=== PATIENT | female | born 1980 | race Caucasian/White ===

== ENCOUNTER → 2020-11-05 12:50 | Outpatient (CLI) | payer OTHER, SELFPAY ==
--- NOTE | ~2020-11-05 | MM_ITS ---
EXAMINATION: MM screening [facility] BI w antoinette HISTORY: Screening TECHNIQUE: Craniocaudal and mediolateral oblique 3-D tomosynthesis images were obtained and synthetic 2-D images were generated. CAD analysis was submitted and interpreted. COMPARISON: No prior mammogram is available for comparison at this institution. BREAST PARENCHYMAL COMPOSITION: The breasts are heterogeneously dense, which may obscure small masses . FINDINGS: There is focal asymmetry in the upper outer quadrant of the left breast posteriorly. There is no mammographic evidence for malignancy in the right breast. IMPRESSION: 1. Left breast asymmetry, upper outer quadrant. 2. Additional mammographic views and possible breast ultrasound are recommended. BI-RADS Category 0: Incomplete: Needs additional imaging evaluation. Reviewed, dictated and finalized at location A. IMPRESSION: 1. Left breast asymmetry, upper outer quadrant. 2. Additional mammographic views and possible breast ultrasound are recommended . BI-RADS Category 0: Incomplete: Needs additional imaging evaluation.
== END ==
PROVIDERS: Visit Provider Nurse Practitioner
DX: Z12.31 Encounter for screening mammogram for malignant neoplasm of breast (principal); R92.8 Other abnormal and inconclusive findings on diagnostic imaging of breast
CPT/HCPCS: 77063; 77067

== ENCOUNTER → 2020-12-10 08:53 | Outpatient (CLI) | payer OTHER, SELFPAY ==
--- NOTE | ~2020-12-10 | MMUS_ITS ---
EXAMINATION: MM diagnostic scotty LT w antoinette, US breast LT limited HISTORY: Focal asymmetry of the left breast on screening mammogram TECHNIQUE: Additional 3-D tomosynthesis images of the left breast were performed and synthetic 2-D im ages were generated. CAD analysis was submitted and interpreted. High resolution limited left breast ultrasound was performed. COMPARISON: 11/05/2020 FINDINGS: MAMMOGRAPHIC FINDINGS: There is an approximately 1.4 cm round, obscured mass in the far posterior third of breast at the 2:0 0 location 9 cm from the nipple. The mass appears to contain fatty and fibroglandular density. No sabas picious calcification or architectural distortion are identified. ULTRASOUND: There is an approximately 2.1 x 0.6 cm oval, circumscribed, parallel, complex cystic and solid mass a t the 2:00 location 8 cm from the nipple which demonstrates no posterior features or internal vascula rity. A 5 mm lymph node is noted at the 3:00 location 7 cm from the nipple. IMPRESSION: 1. Left breast mass with imaging features suggestive of a fibroadenolipoma. 2. Recommend 6 month follow-up left diagnostic mammogram and ultrasound. BI-RADS category 3, probably benign findings. Reviewed, dictated and finalized at location A. IMPRESSION: 1. Left breast mass with imaging features suggestive of a fibroadenolipoma. 2. Recommend 6 month follow-up left diagnostic mammogram and ultrasound. BI-RADS category 3, probably benign findings.
== END ==
PROVIDERS: Visit Provider Nurse Practitioner
DX: R92.8 Other abnormal and inconclusive findings on diagnostic imaging of breast (principal)
CPT/HCPCS: 76642; 77061; 77065; G0279

== ENCOUNTER → 2021-08-28 09:28 | Outpatient (CLI) | payer OTHER, SELFPAY ==
--- NOTE | ~2021-08-28 | MMUS_ITS ---
EXAMINATION: MM diagnostic scotty LT w antoinette, US breast LT limited HISTORY: Follow-up left breast mass TECHNIQUE: Additional 3-D tomosynthesis images of the left breast were performed and synthetic 2-D im ages were generated. CAD analysis was submitted and interpreted. High resolution Limited left breast ultrasound was performed. COMPARISON: 08/28/2021 BREAST PARENCHYMAL COMPOSITION: The breasts are heterogenously dense, which may obscure small masses FINDINGS: MAMMOGRAPHIC FINDINGS: The left breast is stable. Focal asymmetry in the upper outer quadrant of the left breast is unchange d from prior examination. No new masses, calcifications or architectural distortion to suggest malign verona. The right breast is unremarkable without evidence for malignancy. ULTRASOUND: Limited right breast ultrasound: At 2:00, 8 cm from the nipple, there is a complex mass measuring 1.9 x 0.5 x 1.3 cm compared with 2.1 x 1.6 x 0.7 cm on prior examination, likely benign hamartoma. 3:00, 7 cm from the nipple, there is an oval hypoechoic mass measuring 5 x 5 x 3 mm which is oval, circums cribed, parallel orientation with no internal vascularity and no posterior features, likely benign. IMPRESSION: 1. Probable benign left breast masses. 2. Recommend 6 month follow-up Limited left breast ultrasound BI-RADS category 3, probably benign findings. Reviewed, dictated and finalized at location A. IMPRESSION: 1. Probable benign left breast masses. 2. Recommend 6 month follow-up Limited left breast ultrasound BI-RADS category 3, probably benign findings.
== END ==
PROVIDERS: PCP Family Medicine; Visit Provider Nurse Practitioner
DX: R92.8 Other abnormal and inconclusive findings on diagnostic imaging of breast (principal)
CPT/HCPCS: 76642; 77061; 77065; G0279

== ENCOUNTER → 2022-03-06 09:29 | Outpatient (CLI) | payer OTHER, SELFPAY ==
--- NOTE | ~2022-03-06 | MMUS_ITS ---
EXAMINATION: MM diagnostic scotty BI w antoinette, US breast BI complete HISTORY: Follow-up breast masses. TECHNIQUE: Additional 3-D tomosynthesis images of the breasts were performed and synthetic 2-D images were generated. CAD analysis was submitted and interpreted. High resolution bilateral complete breas t ultrasound was performed. COMPARISON: Comparison to multiple prior studies sequentially, with oldest reviewed study dated 11/05. BREAST PARENCHYMAL COMPOSITION: The breasts are heterogeneously dense, which may obscure small masses FINDINGS: MAMMOGRAPHIC FINDINGS: There are no suspicious masses, calcifications or architectural distortion in either breast to sugges t malignancy. ULTRASOUND: Complete bilateral US of all 4 quadrants of the breasts and retroareolar region was reviewed. Right breast: At 1:00, 2 cm from the nipple, there is a minimally complicated 3 mm cyst. At 3:00, 6 c m from the nipple there is an oval hypoechoic 5 mm mass with no significant posterior features, most likely benign. Left breast: At 2:00, 8 cm from the nipple, there is a stable heterogeneous partially cystic parallel oriented mass measuring 1.9 x 1.7 x 0.7 cm compared with 1.9 x 1.6 x 0.7 cm on 12/10/2020. At 3:00, 7 cm from the nipple, there is a 1.3 x 0.7 x 0.4 cm intramammary lymph node. IMPRESSION: 1. Likely benign bilateral breast masses. 2. Recommend 6 month follow-up limited bilateral breast ultrasound BI-RADS category 3, probably benign findings. Reviewed, dictated and finalized at location A. GER RESIDENTIAL IMPRESSION: 1. Likely benign bilateral breast masses. 2. Recommend 6 month follow-up limited bilateral breast ultrasound BI-RADS category 3, probably benign findings.
== END ==
PROVIDERS: PCP Family Medicine; Visit Provider Obstetrics & Gynecology Gynecology
DX: R92.8 Other abnormal and inconclusive findings on diagnostic imaging of breast (principal)
CPT/HCPCS: 76641; 77062; 77066; G0279

== ENCOUNTER 2022-09-01 09:32 | Outpatient (CLI) | payer OTHER, SELFPAY ==
--- NOTE | ~2022-09-01 | US_ITS ---
EXAMINATION: US breast BI limited HISTORY: Six-month follow-up for probably benign bilateral breast masses TECHNIQUE: Limited bilateral breast ultrasound was performed. COMPARISON: 03/06/2022, 08/28/2021, 12/10/2020 FINDINGS: There is a stable 4 mm x 3 mm oval, circumscribed, parallel, hypoechoic mass with no pipeline executive ior features or internal vascularity at the 1:00 location, 2 cm from the nipple in the right breast. There is a stable 4 mm round, hypoechoic mass at the 3:00 location, 6 cm from the nipple in the right breast. A 1.7 x 0.5 cm oval, circumscribed, parallel, complex cystic and solid mass of the left jenna st at the 2:00 location, 8 cm from the nipple is stable since the 2020 comparison. An abutting 7 mm h ypoechoic mass is stable in size since the 2020 comparison. An intramammary lymph node is noted at th e 3:00 location 7 cm from the nipple in the left breast. IMPRESSION: Stable, probably benign breast masses. Follow-up targeted left breast ultrasound six months is recomm ended. BI-RADS category 3, probably benign findings. Reviewed, dictated and finalized at location A. IMPRESSION: Stable, probably benign breast masses. Follow-up targeted left breast ultrasoun d six months is recommended. BI-RADS category 3, probably benign findings.
== END 2022-09-01 09:33 ==
LOC: MICIMG 09:33
PROVIDERS: PCP Family Medicine; Visit Provider Nurse Practitioner
DX: N60.01 Solitary cyst of right breast (principal); N60.02 Solitary cyst of left breast; R92.8 Other abnormal and inconclusive findings on diagnostic imaging of breast
CPT/HCPCS: 76642

== ENCOUNTER → 2023-03-06 14:04 | Outpatient (CLI) | payer OTHER, SELFPAY ==
--- NOTE | ~2023-03-06 | MM_ITS ---
EXAMINATION: MM screening [facility] BI w antoinette HISTORY: Screening mammogram TECHNIQUE: Craniocaudal and mediolateral oblique 3-D tomosynthesis images were obtained and synthetic 2-D images were generated. CAD analysis was submitted and interpreted. COMPARISON: 03/06/2022, 08/28/2021, 12/10/2020, 11/05/2020 BREAST PARENCHYMAL COMPOSITION: The breasts are heterogeneously dense, which may obscure small masses . FINDINGS: An asymmetry in the posterior third of the left breast on the mediolateral oblique view in line with the nipple axis is stable. No suspicious mass, calcification, or architectural distortion a re identified in either breast to suggest malignancy. There has been no suspicious interval change. IMPRESSION: 1. No mammographic evidence of malignancy. 2. Recommend routine screening mammography in one year. BI-RADS Category 2: Benign finding(s). Reviewed, dictated and finalized at location A. RPRETER TRANSLATOR
--- NOTE | ~2023-03-06 | US_ITS ---
EXAMINATION: US breast LT limited HISTORY: Six-month follow-up for probably benign sonographically detected left breast masses TECHNIQUE: Limited left breast ultrasound was performed. COMPARISON: 09/01/2022, 03/06/2022, 12/10/2020 FINDINGS: A 1.6 x 0.6 cm oval, circumscribed, parallel, complex cystic and solid mass of the left homero ast at the 2:00 location, 8 cm from the nipple demonstrates interval decrease in size. A 6 mm x 3 mm mass at 2:00 location, 8 cm from the nipple also demonstrates interval decrease in size. Additional p reviously described masses are not identified. IMPRESSION: Benign sonographically detected left breast masses. Routine screening mammography is recommended. BI-RADS Category 2: Benign finding(s). Reviewed, dictated and finalized at location A. ISTIC EXPERT IMPRESSION: Benign sonographically detected left breast masses. Routine screening mammograp hy is recommended. BI-RADS Category 2: Benign finding(s).
== END ==
PROVIDERS: PCP Obstetrics & Gynecology Gynecology; Visit Provider Obstetrics & Gynecology Gynecology
DX: Z12.31 Encounter for screening mammogram for malignant neoplasm of breast (principal); N63.20 Unspecified lump in the left breast, unspecified quadrant
CPT/HCPCS: 76642; 77063; 77067

== ENCOUNTER → 2023-03-27 14:31 | Outpatient (CLI) | payer OTHER, SELFPAY ==
--- NOTE | ~2023-03-27 | XR_ITS ---
EXAMINATION: XR_CERV2-3V_CR DATE: 03/27/2023 14:50 INDICATION: Neck pain. TECHNIQUE: 3 views of cervical spine were obtained. COMPARISON: None. FINDINGS: Bone alignment is normal. Vertebral body heights are normal. There is mildly decreased disc height at C4-C5 and C5-6. At C5-C6 and C6-C7, there is moderate bilateral uncovertebral joint osteoa rthritis. The facet joints are unremarkable. There is mild central canal stenosis at C5-C6 and C6-C7. No prevertebral soft tissue swelling. IMPRESSION: 1. Mild cervical spondylosis. Reviewed, dictated and finalized at location E. ELING INVENTORY ASSOCIATE
--- NOTE | ~2023-03-27 | XR_ITS ---
EXAMINATION: XR lumbar spine 2-3V DATE: 03/27/2023 14:50 INDICATION: Dorsalgia, unspecified. TECHNIQUE: 3 views of lumbar spine were obtained. COMPARISON: None. FINDINGS: There is 5 degrees levocurvature of thoracolumbar spine. There is mild chronic anterior wed ging of multiple lower thoracic vertebral bodies. Vertebral body heights and intervertebral disc heig hts are normal in lumbar spine. There is multilevel mild lumbar facet joint osteoarthritis. There are endplate osteophytes at multiple levels. There is an intrauterine device in expected position. IMPRESSION: 1. Mild lumbar spondylosis. Reviewed, dictated and finalized at location E. BING MANAGER IMPRESSION: 1. Mild lumbar spondylosis.
== END ==
PROVIDERS: PCP Family Medicine; Visit Provider Emergency Medicine
DX: M47.892 Other spondylosis, cervical region (principal); M47.896 Other spondylosis, lumbar region
CPT/HCPCS: 72040; 72100

== ENCOUNTER 2023-05-22 10:00 | Outpatient (RCR) | payer OTHER, SELFPAY ==
--- NOTE | 2023-04-24 11:57 | OPREHPOC ---
Outpatient Therapy Plan of Care This is a Multidisciplinary Plan of Care that may contain components documented by all disciplines (PT, OT, and ST.) PT Problem 1 PT Problem #1 Knowledge Deficit PT Goal 1 Goal Pt to be IND with issued HEP Target Visit 8 PT Problem 2 PT Problem #2 Pain PT Goal 1 Goal Pt to report back or neck pain no greater than 3/ 10 in the last week. Target Visit 8 PT Goal 2 Goal Pt to report 75% improvement in overall symptoms 8 PT Problem 3 PT Problem #3 Impaired Functional Mobil PT Goal 1 Goal Pt to demonstrate functional lift and carry with 30lb Target Visit 8 PT Goal 1 Goal Pt to report being able to stand for 2 hours before needing to sit. Target Visit 8
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
--- NOTE | 2023-05-15 11:58 | PCPTNOTE ---
Patient canceled this date with no reason given.
--- NOTE | 2023-05-22 10:57 | PTOPDC ---
Assessment and note entered by Samantha Orta, PT, DPT Evaluation Information Assessment Status Discharge Diagnosis neck and low back pain Onset chronic Subjective Information Pt states she has hardly had any neck pain in the last week, only once when waking up. She states her back is doing good today, and feels like it is progressing well. She states she still has pain when at work. Reported Pain Level Pain Score 2,0: Self Report Assessment PT Clinical Summary Sandy presents to therapy today for her progress report following 8 visits of skilled therapy to treat her diagnosis of chronic neck and low back pain. Today she demonstrates improved cervical ROM with improved pain reports. She continues to report low back pain with prolonged standing and with work, she continues to require moderate amounts of cueing for posture throughout exercise. Pt educated on adjusting standing posture while at work. Pts HEP progressed this date and she plans to continue working towards her therapy goals IND. She will be discharged at this time.
== END 2023-05-22 13:56 | disposition home or self-care (01) ==
LOC: ANHGOSHPT 10:00
PROVIDERS: PCP Family Medicine; Visit Provider Emergency Medicine
DX: S16.1XXD Strain of muscle, fascia and tendon at neck level, subsequent encounter (principal); S39.012D Strain of muscle, fascia and tendon of lower back, subsequent encounter
CPT/HCPCS: 97014; 97110; 97161; 97530; G0283

== ENCOUNTER 2024-03-23 13:22 | Outpatient (CLI) | payer OTHER, SELFPAY ==
--- NOTE | ~2024-03-23 | MM_ITS ---
EXAMINATION: MM screening [place]ty BI w antoinette HISTORY: Screening TECHNIQUE: Craniocaudal and mediolateral oblique 3-D tomosynthesis images were obtained and synthetic 2-D images were generated. CAD analysis was submitted and interpreted. COMPARISON: Comparison to multiple prior studies sequentially, with oldest reviewed study dated 11/05. BREAST PARENCHYMAL COMPOSITION: Dense: The breasts are heterogeneously dense, which may obscure small masses FINDINGS: There is no evidence of suspicious mass, calcification, or architectural distortion to sugg est malignancy in either breast. There has been no suspicious interval change. IMPRESSION: 1. No mammographic evidence of malignancy. 2. Recommend routine screening mammography in one year. BI-RADS Category 1: Negative Reviewed, dictated and finalized at location B. ILIZING MACHINE OPERATOR
== END 2024-03-23 13:23 | disposition home or self-care (01) ==
LOC: MICIMG 13:23
PROVIDERS: PCP Family Medicine; Visit Provider Nurse Practitioner
DX: Z12.31 Encounter for screening mammogram for malignant neoplasm of breast (principal)
CPT/HCPCS: 77063; 77067

== ENCOUNTER 2025-01-16 14:24 | Outpatient (CLI) | payer OTHER, SELFPAY ==
--- NOTE | ~2025-01-16 | US_ITS ---
EXAMINATION: US transvaginal, 01/16/2025 14:27 CDT HISTORY: Pelvic pain, IUD check Comparison: None Technique: Vital-scale and color Doppler images were attempted of the lower saphenofemoral junction, common femoral vein,superficial femoral vein, proximal deep femoral vein, proximal deep femoral vein, popliteal vein and posterior tibial veins. Findings: Deep Venous System:Normal flow, augmentation and compressibility. No echogenic thrombus identified. The contralateral saphenofemoral junction appears unremarkable. Superficial Venous SystemNo superficial thrombophlebitis. Soft tissues: Soft tissues are unremarkable. Impression: Negative for DVT. EXAMINATION: US transvaginal, 01/16/2025 14:27 CDT HISTORY: Pelvic pain, IUD check Comparison: None Technique: Vital-scale and color Doppler images were obtained. Findings: Uterus: Uterus anteverted 7.7 x 3.8 x 4.1 cm, IUD in appropriate location. . Endometrium 4 mm. Right Ovary:Right ovary 1.7 x 1.1 x 1.7 cm, no adnexal mass, normal flow. Left Ovary: Left ovary 1.5 x 0.8 x 0.9 cm, no adnexal mass, normal flow Free Fluid: None Impression: IUD in appropriate location Reviewed, dictated and finalized at location P. Impression: Negative for DVT. EXAMINATION: US transvaginal, 01/16/2025 14:27 CDT HISTORY: Pelvic pain, IUD check Comparison: None Technique: Vital-scale and color Doppler images were obtained. Findings: Uterus: Uterus anteverted 7.7 x 3.8 x 4.1 cm, IUD in appropriate location. . Endometrium 4 mm. Right Ovary:Right ovary 1.7 x 1.1 x 1.7 cm, no adnexal mass, normal flow. Left Ovary: Left ovary 1.5 x 0.8 x 0.9 cm, no adnexal mass, normal flow Free Fluid: None Impression: IUD in appropriate location
== END 2025-01-16 14:25 | disposition home or self-care (01) ==
LOC: MICIMG 14:25
PROVIDERS: PCP Family Medicine
DX: R10.2 Pelvic and perineal pain (principal); Z30.431 Encounter for routine checking of intrauterine contraceptive device
CPT/HCPCS: 76830

== ENCOUNTER 2025-03-21 12:28 | Outpatient (CLI) | payer OTHER, SELFPAY ==
--- NOTE | 2025-03-21 | ECG_ITS ---
Test Date: 2025-03-21 13:00:45 Measurements Intervals [place] Rate: 57 P: 78 FL: 238 QRS: 79 QRSD: 131 T: 27 QT: 480 QTc: 470 Interpretive Statements SINUS BRADYCARDIA WITH FIRST DEGREE AV BLOCK WITH OCCASIONAL SUPRAVENTRICULAR PREMATURE COMPLEXES INTRAVENTRICULAR CONDUCTION DELAY [130+ ms QRS DURATION] CANNOT R/O SEPTAL INFARCT, AGE INDETERMINATE BORDERLINE ST-T WAVE ABNORMALITY- ANTEROLAT/INF LEADS ABNORMAL ECG No previous ECG available for comparison Electronically Signed On 03-21-2025 13:05:13 QUALITY CONTROL INDUSTRIAL ENGINEER by Frankie Harris D.O.
--- OUTSIDE RECORDS SUMMARY | 2025-03-21 13:07 | XMS_ITS | Clinical Summary ---
Author Organization [employer] [facility] [address] Address [address] [facility] [facility] [address] [place] [address] Phone Care Team Providers Care Machine Shop Specialist Name Role Phone Raven Abrams MD Primary Care Provider [phone] Social History Tobacco Use Types Packs/Day Years Used Date Smoking Tobacco: Never Assessed Comments Unknown Sex and Gender Information Value Date Recorded Sex Assigned at Not on file Legal Sex Female 3:32 PM CDT Gender Identity Not on file Sexual Orientation Not on file Plan of Treatment Health Maintenance Due Date Last Done Comments DTAP/TDAP/TD VACCINES (1 - Tdap) 10/22/1999 HEPATITIS B VACCINES (1 of 3 - 19+ 3-dose series) 07/1999 HPV/Cotest (21-29) 2001 HPV VACCINES (1 - 3-dose SCDM series) 10/22/2007 CERVICAL CANCER SCREENING 2010 HPV/Cotest (30-65) 2010 PAP SMEAR 2010 BREAST CANCER SCREENING 2020 INFLUENZA VACCINE (#1) 2024 Insurance [employer] BLUE ACCESS/TRUE BLUE PPO Care Teams Machine Shop Specialist Relationship Specialty Start Date End Date Raven Abrams MD PCP - General Family Practice 07/05/13
--- OUTSIDE RECORDS SUMMARY | 2025-03-21 13:07 | XMS_ITS | Encounter Summary ---
Author Organization [facility] Address [address] [place] [address] Phone Care Team Providers Care Revenue Officer Name Role Phone Raven Abrams MD Primary Care Provider + Dayna Maxwell RN Unavailable Unavaila Jaylene Rincon RN Unavailable Unavailable Nirmala Varela Unavailable Unavailable Encounter Details Date Type Department Care Team (Late st Contact Info) Description 01/27/2025 Results Follow-Up [facility] Medicine Cardiology [address] [facility] Advanced Medicine 8th [place] [address] [place] [address] Coleen Lemus MD [address] [facility] [address] [place] [address] Basic metabolic panel, eGFR, ECG 12 lead Social History Tobacco Use Types Packs/Day Years Used Date Smoking Tobacco: Never Smokeless Tobacco: Never Alcohol Use Standard Drinks/Week Comments Yes 0 (1 standard drink = 0.6 oz pur e alcohol) Personal Safety Answer Date Recorded Have you ever been in or are you currently in a harmful physical or emotional relationship or is someone making you feel afraid or unsafe? 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
--- OUTSIDE RECORDS SUMMARY | 2025-03-21 13:07 | XMS_ITS | Clinical Summary ---
Author Organization [facility] Medical [facility] 1 Address [address] [place] [address] Care Team Providers Care Call Center Rn Name Role Phone Raven Abrams MD Primary Care Provider + Dayna Maxwell RN Unavailable Unavaila Jaylene Rincon RN Unavailable Unavailable Nirmala Varela Unavailable Unavailable Allergies Active Allergy Reactions Criticality Noted Date Comments Prednisone Other (See comments) Low 06/10/2016 Throat swelling and pain in neck Medications ergocalciferol (VITAMIN D) 50,000 unit capsule Take 1 capsule (50,000 Units total) by mouth once a week 10/13/2020 Active empagliflozin (JARDIANCE) 10 mg tablet Take 1 tablet (10 mg total) by mouth daily 30 tablet 11 07/08/2023 Active cetirizine (ZyrTEC) 10 mg chewable tabletIndicatio ns:Seasonal Allergic Rhinitis Take 1 tablet (10 mg total) by mouth daily Active Xarelto 20 mg tablet TAKE 1 TABLET BY MOUTH EVERY DAY WITH DINNER 90 tablet 2 08/02/2024 Active sacubitriL-vals hernandez (Entresto) 24-26 mg tablet Take 1 tablet by mouth 2 (two) times a day 180 tablet 3 12/13/2024 Active metoprolol XL (TOPROL-XL) 25 mg extended release tablet TAKE 1 TABLET (25 MG TOTAL) BY MOUTH DAILY. 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 Do not recommend surgical intervention based upon these factors and her tolerable symptoms. Continue compression therapy follow-up with me on a p.r.n. basis. Assessment & Plan (10/19/2020 11:22 AM CDT): Impression: Patient has varicosities noted to left lower extremity with a small mass to left posterior knee. Patient complains of pain final left lower extremity. Plan: Recommend continue wearing compression stocking 20-30mm HG. Patient requesting pantyhose style compressions. Recommend venous reflux study and follow up in 2 weeks to discuss results. Rash and nonspecific skin eruption 10/19/2020 Assessment & Plan (10/19/2020 12:52 PM CDT): Impression: Erythema, raised papules noted to bilateral tibial area and left inner thigh. Patient complains of itchiness to these areas. No open areas noted. Plan: Patient has an appointment with Dermatology the end of October. She is currently on medication for rash by primary physician. Advised patient to keep dermatology appointment and to continue medication. Patient understood. 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 Assessment & Plan (06/24/2022 12:02 PM NUTRITION SERVICES WORKER): HFrecEF. Stable in clinic today. NYHA class I findings. ECHO pending from today. Continue BB and ARB. 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 Saw Dr. Anderson in January who offered her a repeat cardiac telemetry, she declined this again, not very bothersome. Tikosyn and eliquis. Assessment & Plan (07/02/2023 2:52 PM CDT): Reoccurrence of Afib/Flutter appreciate Dr. Lemus's recs. Pending admission to [facility] later this month for Tikosyn load. Continue Metoprolol and Xarelto. Assessment & Plan (06/24/2022 12:03 PM NUTRITION SERVICES WORKER): Denies reoccurrence, continue xarelto Metoprolol decreased to 25 mg for fatigue. 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 Echo pending from today. With recurrence of atrial arrhthymias see Aflutter. Continue metoprolol xl 25 mg and Entresto 24/26 mg BID, will clarify with EP if SGLT2 is safe with Tikosyn (will start Farxiga [address] Riley in 6 months with an ECHO same day to establish care. 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 Doing well in clinic from a cardiovascular standpoint, she continues to endorse fatigue this is chronic and ongoing. We decreased her metoprolol to 25 mg and encouraged her to take it at night along with stressing the importance of compliance with her CPAP. ECHO pending from today, further rec upon review. No ASA and she does not require SBE. 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 May 2023 with LVEF and RVEF measured at 30%. NYHA class I findings and euvolemic on exam. Medical management is good, will add low dose aldactone 12.5mg daily. Continue entresto, jardiance and metoprolol. I asked her to see our [facility] provider in 6 months with an ECHO the same day Dr. Cannon and then Dr. Riley in 6 months after that. 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 May 2023 with LVEF and RVEF measured at 30%. NYHA class I findings and euvolemic on exam. Medical management is good, will add low dose aldactone 12.5mg daily. Continue entresto, jardiance and metoprolol. [facility] with an ECHO the same day Dr. Cannon and then Dr. Riley in 6 months after that. Resolved Problems Problem Noted Date Diagnosed Date Resolved Date Atrial fibrillation 07/10/2023 08/28/19 24 Encounters Date Type Department Care Team Description 03/21/2025 Telephone [facility] [address] [place] [address] [place] [address] [place] [address] Bonifacio Riley MD PhD 02/15/2025 10:30 AM CDT Office Visit [facility] [address] [place] [address] [place] [address] [place] [address] Ashley Smith NP Congenital anomaly of heart (Primary Dx); Atrial flutter, unspecified type (HCC) 01/27/2025 2:55 PM CDT Lab [facility] [address] [place] [phone] Atrial flutter, unspecified type (HCC) 01/27/2025 11:00 AM CDT Office Visit [facility] [address] [place] [address] [place] [address] Coleen Lemus MD Atrial flutter, unspecified type (HCC) (Primary Dx); High risk medication use 01/27/2025 Results Follow-Up [facility] [address] [place] [address] [place] [address] Coleen Lemus MD Basic metabolic panel, eGFR, ECG 12 lead from Last 3 Months Immunizations Immunization Administration Dates Next Due Influenza, Quadrivalent, Spl it, Preservative Free, Intramuscular 02/24/2020 Influenza, Unspecified 01/19/2023 Pfizer SARS-CoV-2 Monovalent Vaccination (12+ Yrs) PURPLE 07/30/2020,07/06/2020 Surgical History Surgery Date Site/Laterality Comments SECTION 04/20/2013 - 04/19/2014 ASD REPAIR 04/20/1983 - 04/19/1984 PULMONARY VALVE SURGERY 1980 RVOT patch reconstruction via ventriculotomy, RV muscle bundle division, 4 mm Goretext central shunt Medical History Medical History Date Comments Acquired scoliosis Scoliosis Atrial flutter (HCC) Pulmonary atresia with intact ventricular septum Pulmonary insufficiency Atrial septal defect Obstruction of femoral vein Peripartum cardiomyopathy Family History Medical History Relation Name Comments Stroke Maternal Grandfather Family history of cerebrovascular accident (CVA) - (Added by TW Conv) Heart murmur Mother Family history of heart murmur - (Added by TW Conv) Cardiomyopathy Mother's Brother Family hi story of cardiomyopathy - (Added by TW Conv) Heart murmur Sister Family history of heart murmur - (Added by TW Conv) Relation Name Status Comments Maternal Grandfather Mother Mother's Brother Sister Social History Tobacco Use Types Packs/Day Years Used Date Smoking Tobacco: Never Smokeless Tobacco: Never Tobacco Cessation:Counseling Given: Not Answered Alcohol Use Standard Drinks/Week Comments Yes 0 [...] on file Legal Sex Female 1:59 AM NUTRITION SERVICES WORKER Gender Identity Not on file Sexual Orientation Not on file Last Filed Vital Signs Vital Sign Reading Time Taken Comments Blood Pressure 119/80 02/15/2025 10:45 AM CDT Pulse 66 02/15/2025 10:45 AM CDT Temperature 37.1 C (98.8 F) 07/13/2023 12:03 PM CDT Respiratory Rate 18 07/13/2023 12:03 PM CDT Oxygen Saturation 99% 02/15/2025 10:45 AM CDT Inhaled Oxygen Concentration - - Weight 65.3 kg (144 lb) 02/15/2025 10:45 AM CDT Height 165.1 cm (5' 5) 02/15/2025 10:45 AM CDT Body Mass Index 23.96 02/15/2025 10:45 AM CDT Plan of Treatment Health Maintenance Due Date Last Done Comments Breast Cancer Screening-Mammogram 1980 Cervical Cancer Screening 1980 Depression Screening 1980 Hepatitis C Screening 1980 Varicella Vaccines (1 of 2 - 13+ 2-dose series) 1993 Regular Well Visit/Exam 18-64 1998 HPV Vaccines (1 - 3-dose SCD M series) 10/22/2007 Pneumococcal vaccine <65 (2 of 2 - PCV) 12/07/2014 12/07/2013 Covid-19 Vaccine (3 - 2024-2 6 season) 2024 07/30/2020, 07/06/2020 Influenza Vaccine (#1) 2024 , 01/19/2023, 02/28/2020, Additional history exists DTaP/Tdap/Td Vaccine (8 - Td or Tdap) 04/06/2027 04/06/2017, 10/18/2013, 09/25/1994, Additional history exists Procedures Procedure Name Priority Date/Time Associated Diagnosis Comments BASIC METABOLIC PANEL Routine 02/23/2025 3:28 PM NUTRITION SERVICES WORKER Congenital anomaly of heart EGFR Routine 01/27/2025 12:57 PM CDT Atrial flutter, unspecified type (HCC) BASIC METABOLIC PANEL Routine 01/27/2025 12:57 PM CDT Atrial flutter, unspecified type (HCC) ECG 12-LEAD Routine 01/27/2025 11:29 AM CDT Atrial flutter, unspecified type (HCC) from Last 3 Months Results * Basic metabolic panel (02/23/2025 3:28 PM NUTRITION SERVICES WORKER) Glucose 82 70 - 99 mg/dL [facility] - 01 BUN 14 6 - 24 mg/dL [facility] - 01 Creatinine, Serum 0.76 0.57 - 1.00 mg/dL [facility] - 01 eGFR 99 >59 mL/min/1.73 [facility] - 01 BUN/creat ratio 18 9 - 23 [facility] - 01 Sodium 137 134 - 144 mmol/L [facility] - 01 Potassium, sr 4.5 3.5 - 5.2 mmol/L [facility] - 01 Chloride 100 96 - 106 mmol/L [facility] - 01 CO2 23 20 - 29 mmol/L [facility] - 01 Calcium 9.8 8.7 - 10.2 mg/dL [facility] - 01 Blood 02/23/2025 3:28 PM NUTRITION SERVICES WORKER 02/23/2025 Narrative [facility] - 02/24/2025 7:10 AM NUTRITION SERVICES WORKER Performed at: [address] [id number] Hr Intern: Jony Christopher PhD, Phone: [phone] us Ashley Smith MANAGING PARTNER LAB BLOOD ORDERABLES Final Result [facility] * eGFR (01/27/2025 12:57 PM CDT) [facility] eGFR >90 >=60 mL/min/1. 73 m2 Comment: Interpretive Data Reference Interval Normal >/= 90 mL/min/1.73m2 Mildly decreased* 60 - 89 mL/min/1.73m2 Mildly to moderately decreased 45 - 59 mL/min/1.73m2 Moderately to severely decreased 30 - 44 mL/min/1.73m2 Severely decreased 15 - 29 mL/min/1.73m2 Kidney Failure < 15 mL/min/1.73m2 *Relative to young adult level Estimated glomerular filtration rate is determined by the 2020 CKD-EPI equation recommended by the National Kidney Foundation (A Unifying Approach to GFR Estimation: Recommendations of the NKF-ASK Task Force on Reassessing the Inclusion of Race in Diagnosing Kidney Disease, JASN 2020). The CKD-EPI equation should not be used for patients with unstable renal function and has not been validated in children and those over 70. Current interpretive data was last reviewed 2021. Blood 01/27/2025 12:5 7 PM CDT 01/27/2025 1:36 PM CDT Coleen Lemus MD LAB BLOOD ORDERABLES Final Res ult Performing Organization Address City/[facility]/ZIP Co de Phone Number [facility] [place] [address] * Basic metabolic panel (01/27/2025 12:57 PM CDT) Sodium 139 135 - 145 mmol/L Potassium, pl 4.0 3.3 - 4.9 mmol/L [facility] Chloride 104 97 - 110 mmol/L [facility] CO2 28 22 - 32 mmol/L [facility] Anion gap 7 2 - 15 mmol/L [facility] BUN 13 6 - 25 mg/dL [facility] Creatinine 0.70 0.60 - 1.10 mg/dL [facility] Glucose 100 70 - 199 mg/dL [facility] Comment: Interpretive Data Fasting glucose >/= 126 mg/dl is diagnostic for diabetes. Fasting is defined as no caloric intake for at least 8 hours. Fasting glucose between 100 mg/dl to 125 mg/dl is diagnostic of prediabetes. In a patient with classic symptoms of hyperglycemia or hyperglycemic crisis, a random glucose >/= 200 mg/dl is diagnostic for diabetes. In the absence of unequivocal hyperglycemia, results should be confirmed by repeat testing. The classification and Diagnosis of Diabetes Diabetes Care 2021; 46: S19-S40. Current interpretive data was last revised 2022. Calcium 9.2 8.5 - 10.3 mg/dL [facility] Blood 01/27/2025 12:5 7 PM CDT 01/27/2025 1:28 PM CDT Coleen Lemus MD LAB BLOOD ORDERABLES Final Res ult Performing Organization Address [facility] Co de Phone Number [facility] Department [place] [address] * ECG 12 lead (01/27/2025 11:29 AM CDT) us Coleen Lemus MD ECG ORDERABLES Edited Result - Final from Last 3 Months Insurance [facility] CHOICE PLUS [facility] CHOICE PLUS [facility] CHOICE PLUS Advance Directives For more information, please contact: [phone] * Full Code (Latest Code Status on File) Date Activated Date Inactivated Comments 07/10/2023 11:47 AM 07/13/2023 6:51 PM Care Teams Call Center Rn Relationship Specialty Start Date End Date Raven Abrams MD PCP - General 12/23/16 Dayna Maxwell, store mgr Failure Coordinator 01/05/24 Jaylene Burk, store mgr Failure Coordinator 08/03/24 Nirmala Varela Primary Facilities Management Executive 01/05/25
--- OUTSIDE RECORDS SUMMARY | 2025-03-21 13:07 | XMS_ITS | Encounter Summary ---
Author Organization [facility] Address [address] [place] [address] Phone Care Team Providers Care Network Intern Name Role Phone Raven Abrams MD Primary Care Provider + Dayna Maxwell RN Unavailable Unavaila Jaylene Rincon RN Unavailable Unavailable Nirmala Varela Unavailable Unavailable Reason for Referral * Cardiology (Routine) - Authorized Specialty Diagnoses / Procedures Referred By Contac t Referred To Contact Diagnoses Atrial flutter, unspecified type (HCC) Procedures ECG 12 lead Bonifacio Riley MD PhD [address] [address] Phone: tel: fax: External Order Referral ID Status Reason Start Date Expiration Date V isits Requested Visits Authorized [id number] Authorized 03/21/2025 04/20/2026 1 1 YER HAND Encounter Details Date Type Department Care Team (Late st Contact Info) Description 03/21/2025 Telephone [facility] Cardiology [address] 8th [place] [address] [place] [id number] Bonifacio Riley MD PhD [address] [address] Social History Tobacco Use Types Packs/Day Years [...] on file Legal Sex Female 1:59 AM SPRAYER HAND Gender Identity Not on file Sexual Orientation Not on file documented as of this encounter Miscellaneous Notes * Telephone Encounter - Dayna Maxwell RN - 03/21/2025 12:31 PM SPRAYER HAND Spoke with [facility] and verified that they have received the EKG order and are registeringpatient now. YER HAND * Telephone Encounter - Dayna Maxwell RN - 03/21/2025 12:26 PM SPRAYER HAND Order again faxed to Driver, but this time to [phone]. Confirmation received. YER HAND * Telephone Encounter - Yumiko De Paz - 03/21/2025 12:17 PM CST [facility] is calling to get the EKG order sent over. Patient is currently there. YER HAND * Telephone Encounter - Dayna Maxwell RN - 03/21/2025 10:55 AM SPRAYER HAND Spoke with patient and explained that Dr. Riley recommends she obtain walk-in EKG to evaluate rhythm. Per request order faxed to [facility] at [phone] and confirmation received. Spoke with patient again and explained process outlined by Driver for walk-in EKG and further explained that either our office or Dr. Lemus's office would contact her once EKG results were received and reviewed. Patient verbalized understanding and agreeable to plan. YER HAND * Telephone Encounter - Dayna Maxwell RN - 03/21/2025 9:27 AM SPRAYER HAND Spoke with patient who states that she has been experiencing palpitations for approximately 2 hours. She is unsure of her HR or BP, but states she can feel her heart beating fast. She is not SOB or experiencing any dizziness, lightheadedness, or chest pain. Patient had a clinic visit with Dr. Harvey 01/27/25 where she was told to contact office should palpitations become stronger or more frequent so that they could monitor and evaluate. She is taking all medications as prescribed including metoprolol 25mg daily, Xarelto 20 daily and dofetilide 250mcg BID. Explained we would update Dr. Riley, but also message Dr. Lemus's office so that they could contact her to discuss. Patient verbalized understanding and agreeable to plan. YER HAND * Telephone Encounter - Angeles Valdez - 03/21/2025 8:51 AM CST [facility] Pt calling stating that she is having heart palpitations this morning around 6:45 and has been going on and off. Took medication at 8:30 but still feels tired and weak. YER HAND documented in this encounter Plan of Treatment Scheduled Orders Name Type Priority Associated Diagnoses Orde r Schedule ECG 12 lead ECG Routine Atrial flutter, unspecified type (HCC) 1 Occurrences starting 03/21/2025 until 03/21/2026 documented as of this encounter Visit Diagnoses Diagnosis Atrial flutter, unspecified type (HCC)- Primary documented in this encounter Care Teams Network Intern Relationship Specialty Start Date End Date Raven Abrams MD PCP - General 12/23/16 Dayna Maxwell RN Heart Failure Coordinator 01/05/24 Jaylene Burk RN Heart Failure Coordinator 08/03/24 Nirmala Varela Primary Mold Yarn Supervisor 01/05/25 documented as of this encounter
== END 2025-03-21 12:29 | disposition home or self-care (01) ==
LOC: ANHCARD 12:31
PROVIDERS: PCP Family Medicine; Visit Provider Internal Medicine
DX: I48.92 Unspecified atrial flutter (principal); I45.9 Conduction disorder, unspecified
CPT/HCPCS: 93005

== ENCOUNTER 2025-03-27 14:03 | Outpatient (CLI) | payer OTHER, SELFPAY ==
--- NOTE | ~2025-03-27 | MM_ITS ---
EXAMINATION: MM screening scotty BI w antoinette HISTORY: Screening. TECHNIQUE: Craniocaudal and mediolateral oblique 3-D tomosynthesis images were obtained and synthetic 2-D images were generated. CAD analysis was submitted and interpreted. COMPARISON: 2023, 2022, and 2021 BREAST PARENCHYMAL COMPOSITION: Dense: The breasts are heterogeneously dense FINDINGS: No suspicious masses are seen. There are no suspicious calcifications. No unexplained architectural distortion is seen. There are no skin or nipple abnormalities identified. There is no adenopathy seen on the images submitted. IMPRESSION: No mammographic or sonographic evidence to suggest malignancy is seen. The patient may return to screening mammography as per ACR guidelines. BI-RADS 1 - Negative. Reviewed, dictated and finalized at location B. NESS SPECIALIST IMPRESSION: No mammographic or sonographic evidence to suggest malignancy is seen. The kranthi ent may return to screening mammography as per ACR guidelines. BI-RADS 1 - Negative.
== END 2025-03-27 14:04 | disposition home or self-care (01) ==
LOC: MICIMG 14:03
PROVIDERS: PCP Family Medicine
DX: Z12.31 Encounter for screening mammogram for malignant neoplasm of breast (principal)
CPT/HCPCS: 77063; 77067